=== PATIENT | male | born 1990 | race African-American/Black ===

== ENCOUNTER 2022-12-11 11:42 | Emergency (ER) | payer SELFPAY ==
[~2022-12-11] VITALS: Ht 170.2 cm; Wt 68.0 kg
[2022-12-11 11:45] VITALS: BP 120/80; PULSE 90; RESP 16; TEMP 98.3; O2SAT 99
== END 2022-12-11 12:08 | disposition left against medical advice (07) ==
LOC: ER 11:52
DX: F10.129 Alcohol abuse with intoxication, unspecified (principal); Y90.9 Presence of alcohol in blood, level not specified
CPT/HCPCS: 99283